=== PATIENT | male | born 1955 | race Caucasian/White ===

== ENCOUNTER 2020-04-08 15:23 | Emergency (ER) | payer BC, MEDICAID, MEDICARE ==
[~2020-04-08] VITALS: Ht 193 cm; Wt 61.0 kg
[2020-04-08] MEDS ORDERED: NALOXONE 0.4 MG/ML VIAL. ONE (15:36)
[2020-04-08] MEDS ORDERED: IV NORMAL SALINE 1,000ML 1,000 ML IV ONE (15:45)
--- NOTE | 2020-04-08 15:53 | PHYS DOC ---
Past History Additional Past Medical Histor: unknown General Adult EDM: Chief Complaint: ALTERED MENTAL STATUS HPI: HPI: Patient is a 64-year-old male who presents to the emergency department for evaluation. He was reportedly found on the ground of his apartment by his roommate, it is unknown when his last known normal time was. It is unknown how he fell. The patient is awake and alert, but is noted to be hypotensive. EMS administered approximately 1 L of lactated Ringer's before arrival in the emergency department and the patient's blood pressure improved to 80/40. The patient denies any focal pain other than his chronic back pain, for which he takes hydrocodone and gabapentin. He has not had any reported fevers and denies any significant shortness of breath. There are no alleviating or exacerbating factors to his symptoms. The patient will answer some basic limited questions, but does appear somewhat confused, which limits ability to obtain an accurate history. Review of the patient's prescription monitoring program history reveals that he takes 10 mg hydrocodone tablets 6 times per day. Review of Systems: Review of Systems: Unable to obtain review of systems secondary to patient's confusion. Heart Score: Risk Factors: Risk Factors: DM, Current or recent (<one month) smoker, HTN, HLP, family history of CAD, obesity. Risk Scores: Score 0 - 3: 2.5% MACE over next 6 weeks - Discharge Home Score 4 - 6: 20.3% MACE over next 6 weeks - Admit for Clinical Observation Score 7 - 10: 72.7% MACE over next 6 weeks - Early Invasive Strategies Current Medications: Current Meds: Current Medications Medications (Trade) Dose Ordered Sig/Avril Start Time Stop Time Status Last Admin Dose Admin Naloxone HCl (Narcan) 0.4 mg STK-MED ONCE 04/08/20 15:36 04/08/20 15:37 DC Sodium Chloride 1,000 ml @ 1,000 mls/hr 1X ONCE 04/08/20 15:45 04/08/20 16:44 UNV Physical Exam: PE: PHYSICAL EXAM: CONSTITUTIONAL: Well developed, well nourished HEAD: normocephalic, atraumatic EENT: PERRL, EOMI. Conjunctivae appear pale, sclerae non-icteric; dry mucous membranes. NECK: Supple, non-tender; no meningismus. There is full, painless range of motion of the cervical spine, without any focal bony midline tenderness to palpation. LUNGS: Lungs CTA, breathing even and unlabored. Normal air movement. HEART: Regular rate and rhythm, no murmur CHEST: No deformity; non-tender ABDOMEN: The abdomen is soft, there is right lower quadrant tenderness to palpation without rebound or guarding, remainder the abdomen is soft and non- tender, no masses or bruits. EXTREM: Normal ROM; no deformity, no calf tenderness. Normal pulses palpable in all extremities. There is no pedal edema. SKIN: No rash; no diaphoresis. The patient appears pale. NEURO: Alert; patient has somewhat delayed cognition, but is able to answer some basic questions and follow basic commands; CN's grossly intact; strength grossly intact without focal deficit. There is no gross sensory deficit. No focal neurological deficit is identified other than cognitive deficit. BACK: No CVA TTP. RECTAL EXAM: There is maroon stool oozing from the rectum. Current Patient Data: Labs: Laboratory Tests Test 04/08/20 15:54 White Blood Count 7.1 x10^3/uL Red Blood Count 2.99 x10^6/uL Hemoglobin 7.9 g/dL Hematocrit 26.2 % Mean Corpuscular Volume 88 fL Mean Corpuscular Hemoglobin 27 pg Mean Corpuscular Hemoglobin Concent 30 g/dL Red Cell Distribution Width 22.4 % Platelet Count 127 x10^3/uL Neutrophils (%) (Auto) 67 % Lymphocytes (%) (Auto) 21 % Monocytes (%) (Auto) 10 % Eosinophils (%) (Auto) 1 % Basophils (%) (Auto) 1 % Neutrophils # (Auto) 4.8 x10^3uL Lymphocytes # (Auto) 1.5 x10^3/uL Monocytes # (Auto) 0.7 x10^3/uL Eosinophils # (Auto) 0.1 x10^3/uL Basophils # (Auto) 0.1 x10^3/uL Platelet Estimate Decreased Anisocytosis Slight Spherocytes Few Prothrombin Time 11.6 SEC Prothromb Time International Ratio 1.1 Activated Partial Thromboplast Time 25 SEC Sodium Level 144 mmol/L Potassium Level 5.7 mmol/L Chloride Level 114 mmol/L Carbon Dioxide Level 11 mmol/L Anion Gap 19 Blood Urea Nitrogen 101 mg/dL Creatinine 9.3 mg/dL Estimated GFR (Cockcroft-Gault) 5.7 BUN/Creatinine Ratio 11 Glucose Level 118 mg/dL Lactic Acid Level 1.2 mmol/L Calcium Level 8.6 mg/dL Magnesium Level 1.7 mg/dL Total Bilirubin 0.3 mg/dL Aspartate Amino Transf (AST/SGOT) 20 U/L Alanine Aminotransferase (ALT/SGPT) 13 U/L Alkaline Phosphatase 143 U/L Troponin I Quantitative < 0.017 ng/mL [id number]-Type Natriuretic Peptide 3534 pg/mL Total Protein 6.9 g/dL Albumin 2.8 g/dL Albumin/Globulin Ratio 0.7 Lipase 112 U/L Acetaminophen Level < 2.0 mcg/mL Acetaminophen Last Dose Date Unknown Acetaminophen Last Dose Time Unknown Current Medications Medications (Trade) Dose Ordered Sig/Avril Route PRN Reason Start Time Stop Time Status Last Admin Dose Admin Naloxone HCl (Narcan) 0.4 mg STK-MED ONCE .ROUTE 04/08/20 15:36 04/08/20 15:37 DC Sodium Chloride 1,000 ml @ 1,000 mls/hr Q1H IV 04/08/20 15:40 04/08/20 16:39 DC 04/08/20 16:45 Sodium Chloride 1,000 ml @ 1,000 mls/hr 1X ONCE IV 04/08/20 15:45 04/08/20 16:44 DC 04/08/20 16:04 Iohexol (Omnipaque 300 Mg/ml) 75 ml 1X ONCE IV 04/08/20 16:15 04/08/20 16:18 DC 04/08/20 16:35 Info (Do NOT chart on this entry -- for MONITORING) 1 each PRN DAILY PRN MC SEE COMMENTS 04/08/20 16:30 04/10/20 16:29 EKG: EKG: [] Normal sinus rhythm at a rate of 88 bpm, normal axis, normal intervals, inferior T wave inversion is present, there are no acute ischemic changes noted. Radiology/Procedures: Radiology/Procedures: PROCEDURE: CT ABD PELV W/ IV CONTRST ONLY Study: CT abdomen/pelvis with intravenous contrast Indication: Hypotension. Right lower quadrant tenderness. Comparison: None. Technique: Helical CT imaging performed of the abdomen and pelvis after the intravenous administration of 75 cc contrast. Sagittal and coronal reformats were obtained. One or more of the following individualized dose reduction techniques were utilized for this examination: 1. Automated exposure control 2. Adjustment of the mA and/or kV according to patient size 3. Use of iterative reconstruction technique. Findings: Chest: Calcific coronary artery disease. Calcified and noncalcified atheromatous plaque involving a nonaneurysmal distal thoracic aorta. Motion degradation through the lower lungs. Partially imaged findings at the lingula most suggestive of atelectasis. Mild atelectasis at both lung bases as well. Liver: Motion degraded. Cirrhotic morphology of the liver to include undulating margins and prominence of the caudate lobe. There is apparent heterogeneous low attenuation at the hepatic dome, reference image 12 series 2, however this is occurring in the region of greatest motion degradation. Small area of tracking hypoattenuation along the medial margin of the right hepatic lobe, image 19 series 2 and coronal images 32 and 33. Gallbladder/Biliary Tree: Mildly ectatic. No overt wall thickening or pericholecystic inflammation to suggest acute cholecystitis. Pancreas: No discrete mass or peripancreatic inflammation. Spleen: Upper limits of normal for size. Adrenal Glands: No discrete mass. Kidneys/Ureters/Bladder: Severely atrophic right kidney. Normal size of the left kidney. No hydroureteronephrosis. Mild circumferential thickening of the urinary bladder wall. Reproductive Organs: Mildly prominent prostate at 4.2 cm transverse. Colon: Fluid throughout much of the colon as can be seen with a diarrheal state. Mild wall thickening involving the ascending colon with faint haziness of the pericolonic fat. Appendix: Normal. Small Bowel: No small bowel obstruction. Mildly prominent wall of a segment of the second portion of the duodenum, image 32 series 2, though this could be related to heaped up mucosa when correlating with the reformatted images. Stomach: Not fully evaluated due to underdistention and the lack of oral contrast. Vasculature: Extensive calcified and noncalcified atheromatous plaque throughout the abdominal aorta, iliofemoral system and involving the aortic branch vessels. No aneurysmal dilatation. Particularly severe calcific plaque at the origin of the right renal artery in keeping with right renal atrophy. There is also particularly severe calcific atherosclerosis at the SMA origin with possible severe ostial stenosis. Prominent but less pronounced calcific plaque at the celiac origin. There is likely severe stenosis involving a portion of the left common femoral artery just proximal to the bifurcation, image 79 series 2. Lymph Nodes: No pathologically enlarged lymph nodes seen throughout the abdomen or pelvis. Peritoneum and Body Wall: No free fluid or gas. Bones: A few chronic rib fractures are noted. Chronically deformed sacrum and lumbosacral junction. Sigmoid curvature of the visualized thoracolumbar spine. Scattered superimposed degenerative changes. Miscellaneous: None. Impression: 1. The study is degraded by motion artifact. 2. Fluid scattered throughout the colon as can be seen with a diarrheal state. No bowel obstruction. There is the suggestion of mild wall thickening of the ascending colon with faint haziness of the pericolonic fat though the colon is collapsed in this region. This could be within normal limits for this patient or indicative of a mild nonspecific colitis. 3. Marked calcified and noncalcified atheromatous plaque burden throughout the aorta, iliofemoral system and aortic branch vessels. Severe stenosis at the right renal artery origin with resultant atrophy of the right kidney. There appears to be severe stenosis at the superior mesenteric artery origin and there is also suspected to be severe stenosis of the distal aspect of the left common femoral artery. Given the presumed severe stenosis at the SMA origin, recommend correlation for symptoms that would suggest intestinal angina noting that the bowel in this distribution does not exhibit obvious features of ischemia. 4. Cirrhotic morphology of the liver and borderline enlargement of the spleen. There is heterogeneous attenuation of the liver at the hepatic dome but this region is poorly evaluated due to motion artifact and a definite mass is not able to be delineated. 5. Somewhat ectatic gallbladder but without CT findings that would suggest cholecystitis. 6. Additional chronic findings as detailed in the body of the report.[] PROCEDURE: PORTABLE CHEST 1V PORTABLE CHEST 1V History: Altered mental status Comparison: None. Findings: Single view of the chest is submitted. There is some airspace opacity of the left lateral lung base. There is no significant dependent pleural fluid or pneumothorax. There is thoracic aorta. There is at least moderate superior thoracic levoscoliosis. Heart size is within normal limits. Impression: 1. There is left lateral base airspace opacity which may be atelectasis or infiltrate. 2. There is superior thoracic levoscoliosis. PROCEDURE: CT HEAD AND CERVICAL SPINE WO Exam: CT head and cervical spine INDICATION: Altered mental status, fall TECHNIQUE: Sequential axial images through the head and cervical spine were obtained without the administration of IV contrast. Comparisons: None FINDINGS: Head: No focal parenchymal lesion or hemorrhage is identified. There is no midline shift or sulcal effacement. No acute vascular territory infarction is identified. Edmonds-white distinction is preserved. The ventricular system is within normal limits without compression hydrocephalus. The basal cisterns are well maintained. The visualized portions of the paranasal sinuses and mastoid air cells are well-pneumatized. No acute fractures. Cervical spine: Vertebral body heights are well-maintained. There is a severe levoconvex curvature of the cervical spine. Fracture to the cervical spine is not identified. Multilevel spondylotic change in the cervical spine with degenerative disc disease greatest at C3-C4, C4-C5 and C5-C6. Mild bilateral facet arthropathy is also noted. Visualized paraspinal soft tissues are unremarkable. Visualized paraspinal soft tissues are unremarkable. IMPRESSION: 1. No acute intracranial abnormality. 2. Negative CT C-spine for acute traumatic injury. Course & Med Decision Making: Course & Med Decision Making Pertinent Labs and Imaging studies reviewed. (See chart for details) [] The patient's condition remained stable he is somewhat improved. His heart rate is 97, blood pressure 115/52. There was some delay in obtaining his chemistry, as labs failed to process the initial blood they received in a timely manner, until they were called to inquire about results. The patient is noted to be in renal failure, the acuity of this is unknown. Unfortunately, the patient was taken, without my knowledge, for CT scan with contrast before his creatinine had resulted, he has been aggressively hydrated. He is experiencing a GI bleed, and will need to be transferred to facility with further capabilities, including GI. He would likely need nephrology care as well. We did obtain information from [facility], who was called by registration to see if the patient had been there and he was apparently hospitalized at [facility] from 03/06 through 03/15 also for a GI bleed, although no further information or records are available at this time. I discussed the case with the hospitalist at [facility] who will accept the patient to the ICU for further care. CRITICAL CARE TIME: 50 Minutes, excluding any procedures and care of other patients. Dragon Disclaimer: Dragon Disclaimer: This electronic medical record was generated, in whole or in part, using a voice recognition dictation system. Departure Departure: Impression: Primary Impression: Hypotension Additional Impressions: GI bleed Renal failure Anemia Disposition: SHT-TRM HOSP Condition: STABLE Referrals: PCP,NO (PCP) Justification of Admission: Justification of Admission: Justification of Admission Dx: N/A BIJAN MANE MD Apr 08, 2020 15:53
[2020-04-08] MEDS: IV NORMAL SALINE 1,000ML 1,000 ML IV SCH ×2 (16:01→16:45)
[2020-04-08] MEDS ORDERED: IOHEXOL 300 MG/ML 75 ML VIAL. IV ONE (16:15)
[2020-04-08 16:19] LABS: BASO # 0.1 x10^3/uL (0.0-0.2); BASO % 1 % (0-3); EOS # 0.1 x10^3/uL (0.0-0.7); EOS % 1 % (0-3); HEMATOCRIT 26.2 % (39.0-53.0); HEMOGLOBIN 7.9 g/dL (13.0-17.5); LYMPH # 1.5 x10^3/uL (1.0-4.8); LYMPH % 21 % (24-48); MEAN CORPUSCULAR HEMOGLOBIN 27 pg (25-35); MEAN CORPUSCULAR HGB CONC 30 g/dL (31-37); MEAN CORPUSCULAR VOLUME 88 fL (79-100); MONO # 0.7 x10^3/uL (0.0-1.1); MONO % 10 % (0-9); NEUT # 4.8 x10^3uL (1.8-7.7); NEUT % 67 % (31-73); PLATELET COUNT 127 x10^3/uL (140-400); RED BLOOD COUNT 2.99 x10^6/uL (4.30-5.70); RED CELL DISTRIBUTION WIDTH 22.4 % (11.5-14.5); WHITE BLOOD COUNT 7.1 x10^3/uL (4.0-11.0)
[2020-04-08] MEDS ORDERED: CONTRAST GIVEN MC PRN (16:30)
--- NOTE | 2020-04-08 16:47 | RAD ---
PORTABLE CHEST 1V History: Altered mental status Comparison: None. Findings: Single view of the chest is submitted. There is some airspace opacity of the left lateral lung base. There is no significant dependent pleural fluid or pneumothorax. There is thoracic aorta. There is at least moderate superior thoracic levoscoliosis. Heart size is within normal limits. Impression: 1. There is left lateral base airspace opacity which may be atelectasis or infiltrate. 2. There is superior thoracic levoscoliosis. Electronically signed by: Zohaib Ames MD (04/08/2020 4:45 PM) [id number]
[2020-04-08 16:48] LABS: ANISOCYTOSIS SLIGHT; PLT ESTIMATE DECREASED (ADEQUATE)
[2020-04-08 16:49] LABS: SPHEROCYTES FEW
--- NOTE | 2020-04-08 16:55 | RAD ---
Exam: CT head and cervical spine INDICATION: Altered mental status, fall TECHNIQUE: Sequential axial images through the head and cervical spine were obtained without the administration of IV contrast. Comparisons: None FINDINGS: Head: No focal parenchymal lesion or hemorrhage is identified. There is no midline shift or sulcal effacement. No acute vascular territory infarction is identified. Edmonds-white distinction is preserved. The ventricular system is within normal limits without compression hydrocephalus. The basal cisterns are well maintained. The visualized portions of the paranasal sinuses and mastoid air cells are well-pneumatized. No acute fractures. Cervical spine: Vertebral body heights are well-maintained. There is a severe levoconvex curvature of the cervical spine. Fracture to the cervical spine is not identified. Multilevel spondylotic change in the cervical spine with degenerative disc disease greatest at C3-C4, C4-C5 and C5-C6. Mild bilateral facet arthropathy is also noted. Visualized paraspinal soft tissues are unremarkable. Visualized paraspinal soft tissues are unremarkable. IMPRESSION: 1. No acute intracranial abnormality. 2. Negative CT C-spine for acute traumatic injury. Exposure: One or more of the following in the visualized dose reduction techniques were utilized for this examination: 1. Automated exposure control 2. Adjustment of the MA and/or KV according to patient size Use of iterative of reconstructive technique Electronically signed by: Margot Motley MD (04/08/2020 4:52 PM) [id number]
--- NOTE | 2020-04-08 17:07 | RAD ---
Study: CT abdomen/pelvis with intravenous contrast Indication: Hypotension. Right lower quadrant tenderness. Comparison: None. Technique: Helical CT imaging performed of the abdomen and pelvis after the intravenous administration of 75 cc contrast. Sagittal and coronal reformats were obtained. One or more of the following individualized dose reduction techniques were utilized for this examination: 1. Automated exposure control 2. Adjustment of the mA and/or kV according to patient size 3. Use of iterative reconstruction technique. Findings: Chest: Calcific coronary artery disease. Calcified and noncalcified atheromatous plaque involving a nonaneurysmal distal thoracic aorta. Motion degradation through the lower lungs. Partially imaged findings at the lingula most suggestive of atelectasis. Mild atelectasis at both lung bases as well. Liver: Motion degraded. Cirrhotic morphology of the liver to include undulating margins and prominence of the caudate lobe. There is apparent heterogeneous low attenuation at the hepatic dome, reference image 12 series 2, however this is occurring in the region of greatest motion degradation. Small area of tracking hypoattenuation along the medial margin of the right hepatic lobe, image 19 series 2 and coronal images 32 and 33. Gallbladder/Biliary Tree: Mildly ectatic. No overt wall thickening or pericholecystic inflammation to suggest acute cholecystitis. Pancreas: No discrete mass or peripancreatic inflammation. Spleen: Upper limits of normal for size. Adrenal Glands: No discrete mass. Kidneys/Ureters/Bladder: Severely atrophic right kidney. Normal size of the left kidney. No hydroureteronephrosis. Mild circumferential thickening of the urinary bladder wall. Reproductive Organs: Mildly prominent prostate at 4.2 cm transverse. Colon: Fluid throughout much of the colon as can be seen with a diarrheal state. Mild wall thickening involving the ascending colon with faint haziness of the pericolonic fat. Appendix: Normal. Small Bowel: No small bowel obstruction. Mildly prominent wall of a segment of the second portion of the duodenum, image 32 series 2, though this could be related to heaped up mucosa when correlating with the reformatted images. Stomach: Not fully evaluated due to underdistention and the lack of oral contrast. Vasculature: Extensive calcified and noncalcified atheromatous plaque throughout the abdominal aorta, iliofemoral system and involving the aortic branch vessels. No aneurysmal dilatation. Particularly severe calcific plaque at the origin of the right renal artery in keeping with right renal atrophy. There is also particularly severe calcific atherosclerosis at the SMA origin with possible severe ostial stenosis. Prominent but less pronounced calcific plaque at the celiac origin. There is likely severe stenosis involving a portion of the left common femoral artery just proximal to the bifurcation, image 79 series 2. Lymph Nodes: No pathologically enlarged lymph nodes seen throughout the abdomen or pelvis. Peritoneum and Body Wall: No free fluid or gas. Bones: A few chronic rib fractures are noted. Chronically deformed sacrum and lumbosacral junction. Sigmoid curvature of the visualized thoracolumbar spine. Scattered superimposed degenerative changes. Miscellaneous: None. Impression: 1. The study is degraded by motion artifact. 2. Fluid scattered throughout the colon as can be seen with a diarrheal state. No bowel obstruction. There is the suggestion of mild wall thickening of the ascending colon with faint haziness of the pericolonic fat though the colon is collapsed in this region. This could be within normal limits for this patient or indicative of a mild nonspecific colitis. 3. Marked calcified and noncalcified atheromatous plaque burden throughout the aorta, iliofemoral system and aortic branch vessels. Severe stenosis at the right renal artery origin with resultant atrophy of the right kidney. There appears to be severe stenosis at the superior mesenteric artery origin and there is also suspected to be severe stenosis of the distal aspect of the left common femoral artery. Given the presumed severe stenosis at the SMA origin, recommend correlation for symptoms that would suggest intestinal angina noting that the bowel in this distribution does not exhibit obvious features of ischemia. 4. Cirrhotic morphology of the liver and borderline enlargement of the spleen. There is heterogeneous attenuation of the liver at the hepatic dome but this region is poorly evaluated due to motion artifact and a definite mass is not able to be delineated. 5. Somewhat ectatic gallbladder but without CT findings that would suggest cholecystitis. 6. Additional chronic findings as detailed in the body of the report. Electronically signed by: JENIFFER BRADLEY MD (04/08/2020 5:04 PM) [id number]
[2020-04-08 17:09] LABS: ACETAMIN < 2.0 mcg/mL (10-30)
[2020-04-08 17:13] LABS: ALBUMIN 2.8 g/dL (3.4-5.0); ALBUMIN/GLOBULIN RATIO 0.7 (1.0-1.7); CALCIUM 8.6 mg/dL (8.5-10.1); CREATININE 9.3 mg/dL (0.7-1.3); GFR 5.7; MAGNESIUM 1.7 mg/dL (1.8-2.4); POTASSIUM 5.7 mmol/L (3.5-5.1); TOTAL BILIRUBIN 0.3 mg/dL (0.2-1.0); TOTAL PROTEIN 6.9 g/dL (6.4-8.2)
[2020-04-08 17:55] LABS: AMPHETAMINE/METHAMPHETAMINE NEG (NEG); BARBITURATES NEG (NEG); BENZODIAZEPINES NEG (NEG); CANNABINOIDS NEG (NEG); COCAINE NEG (NEG); METHADONE NEG (NEG); OPIATES POS (NEG); PHENCYCLIDINE NEG (NEG)
[2020-04-08 18:03] LABS: FECAL OB PT NEGATIVE (NEG)
[2020-04-08 18:06] LABS: BILIRUBIN,URINE NEG (NEG); CLARITY,URINE TURBID; COLOR,URINE YELLOW; GLUCOSE,URINE NEG (NEG)
[2020-04-08 18:07] LABS: NITRITE,URINE NEG (NEG); UROBILINOGEN,URINE 0.2 mg/dL (0.2 mg/dL)
[2020-04-08 18:11] LABS: BACTERIA,URINE FEW /HPF (0-FEW); HYALINE CASTS, URINE MANY /HPF; RBC,URINE RARE /HPF (0-2); SQUAMOUS EPITHELIAL CELL,UR FEW /LPF; WBC,URINE 0 /HPF (0-4)
[2020-04-08 18:12] LABS: AMORPHOUS SEDIMENT,UR PRESENT /HPF
[2020-04-08 19:19] VITALS: BP 95/41
--- NOTE | 2020-04-10 07:58 | EKG ---
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
== END 2020-04-08 19:25 | disposition short-term general hospital (02) ==
LOC: ER 15:23
DX: I95.9 Hypotension, unspecified (principal); K92.2 Gastrointestinal hemorrhage, unspecified; N19 Unspecified kidney failure; D64.9 Anemia, unspecified; R41.0 Disorientation, unspecified; G89.29 Other chronic pain; W18.39XA Other fall on same level, initial encounter; Y93.89 Activity, other specified; Y92.89 Other specified places as the place of occurrence of the external cause; Y99.8 Other external cause status
CPT/HCPCS: 36415; 70450; 71045; 72125; 74177; 80053; 80307; 80329; 81001; 82274; 83605; 83690; 83735; 83880; 84484; 85025; 85610; 85730; 86850; 86900; 86901; 86920; 87040; 87205; 93005; 96360; 96361; 99291; Q9967; G0480; J7030